=== PATIENT | male | born 2000 | race American Indian/Alaskan Native ===

== ENCOUNTER 2019-09-10 17:56 | Emergency (ER) | payer SELFPAY ==
[2019-09-10 19:19] VITALS: BP 122/66
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
== END 2019-09-10 19:30 | disposition left against medical advice (07) ==
LOC: ED 17:56
DX: M54.2 Cervicalgia (principal); Z53.21 Procedure and treatment not carried out due to patient leaving prior to being seen by health care provider